=== PATIENT | male | born 1965 | race Caucasian/White ===

== ENCOUNTER 2020-02-10 21:21 | Observation (INO) ==
--- NOTE | 2020-02-10 22:02 | ERNOTE ---
Neuro HPI ER Record Time Seen by Provider: 02/10/20 21:25 Immunizations: IMMUNIZATION HX Immunizations Up to Date Yes History of Influenza Vaccine Yes Hx Pneumococcal Vaccination Yes Allergies/Adverse Reactions: Allergies Allergy/AdvReac Type Severity Reaction Status Date / Time carbamazepine [From Tegretol] Allergy Mild Itching Verified 02/10/20 21:27 Home Medications: HOME MEDICATIONS Albuterol Sulfate [Albuterol Sulfate Hfa] 8.5 gm IH Q6H PRN 02/10/20 [Last Taken Unknown] Aspirin [Aspirin EC] 81 mg PO DAILY 02/10/20 [Last Taken Unknown] Atorvastatin Calcium 80 mg PO DAILY 02/10/20 [Last Taken Unknown] Baclofen 10 - 20 mg PO TID PRN 02/10/20 [Last Taken Unknown] Cimetidine 800 mg PO QPM 02/10/20 [Last Taken Unknown] Gabapentin 800 mg PO TID 02/10/20 [Last Taken Unknown] Loratadine 10 mg PO DAILY PRN 02/10/20 [Last Taken Unknown] - History of Present Illness Narrative: 54-year-old male with history of CVA and right-sided residual neuropathic pain comes in tonight stating that he had an episode approximately 3 hours ago where his words were slurred and he had difficulty drinking from a straw he denies any other symptoms beyond what he typically has pain. He does admit to having alcohol and smoking weed tonight but states he does this every night and has not had this problem. Patient states his symptoms have since completely resolved and he is back to normal. According to his he had no facial asymmetry or extremity weakness during the episode of slurred speech Review of Systems - Review of Systems Constitutional: Present: See HPI EYE: Present: no symptoms reported ENT: Present: See HPI Respiratory: Present: no symptoms reported Cardiology: Present: no symptoms reported Gastrointestinal/Abdominal: Present: no symptoms reported Genitourinary: Present: no symptoms reported Musculoskeletal: Present: other - Chronic right-sided body pain Skin: Present: no symptoms reported Neurological: Present: other - Chronic neuropathic pain All Other Systems: All systems neg except as marked Medical History (Last Reviewed 02/10/20 @ 21:59 by Naomi Noble MD) COPD (chronic obstructive pulmonary disease) CVA (cerebral vascular accident) Seizures Family History: Family History (Last Reviewed 02/10/20 @ 21:59 by Naomi Noble MD) Brother Cancer Father Heart disease Sister Heart disease Uncle Heart disease Mother Heart disease Social History: (Last Reviewed 02/10/20 @ 21:59 by Naomi Noble MD) Tobacco: Smoking Status: Current every day smoker Smoking cigarettes per day: 20 Alcohol: alcohol intake: current Alcohol type: beer alcohol intake frequency: a few times a month Substance Use: substance use type: marijuana Physical Exam - Physical Exam General Appearance: Present: wd/wn, alert, no apparent distress Head Exam: Present: normal inspection, no evidence of injury Eye Exam: Normal inspection: bilateral Ears, Nose, Throat: Present: normal ENT inspection, other - Poor dentition Neck: Present: normal inspection, nontender, supple, full range of motion, limited range of motion Respiratory: Present: no respiratory distress, normal breath sounds, no accessory muscle use Cardiovascular/Chest: Present: normal peripheral pulses Gastrointestinal/Abdominal: Present: nondistended Back Exam: Present: normal range of motion Extremity Exam: Present: normal inspection Neurological Exam: Present: alert, oriented, normal mood/affect, no motor/sensory deficits, 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 Absent: facial droop, motor weakness, disoriented to person, disoriented to time, disoriented to place, disoriented to situation Skin Exam: Present: normal color Initial Stroke Assessment - NIH Stroke Scale Level of Consciousness: Alert LOC Questions (Year and Age): Answers both correctly LOC Commands (open/close eyes/fist): Performs both correctly Lateral Gaze Paresis: None Visual Field Loss: No visual loss Facial Palsy: Normal movement Right Arm Motor (10 sec hold): No drift Left Arm Motor (10 sec hold): No drift Right Leg Motor (5 sec hold): No drift Left Leg Motor (5 sec hold): No drift Limb Ataxia (finger/nose heel/holley): Absent Sensory Loss (pinprick arms/legs/face): No sensory loss Dysarthria (speech clarity): Normal articulation - Stroke Risk Assessment Stroke Risk Assessment Level: 0 No Impairment Stroke Inclusion/Exclusion Cri - Exclusion Questions: Major symptoms rapidly improving: Yes NIHSS Score <4 or >22 performed by physician: Yes - Total NIHSS Score Score:: 0 Progress - Date and Time Seen: Date and Time: 02/10/20 23:01 Patient remains at baseline with a NIH score of 0. His CT was unremarkable and labs are unremarkable with exception of positive marijuana and a mild leukocytosis of 16. This was discussed with admitting physician Dr. benitez who accepted the patient observation - Results and Orders Patient's Lab Results:: I have reviewed the patient's lab results. - Vital Signs Patient's Vital Signs:: I have reviewed the patient's vital signs. Vital Signs: Vital Signs 02/10/20 21:31 Temperature 36.9 C Pulse Rate 86 Respiratory Rate 13 Blood Pressure 117/79 O2 Sat by Pulse Oximetry 85 L - EKG EKG #1 EKG: NSR, no ST T wave changes - Rate 81 - X-Ray X-Ray #1 X-Ray: chest Interpretation: Interp. by me - No acute findings unchanged from prior on 01/2020 - Progress/Reassessment Chief Complaint: CerebroVascular Accident Progress:: Unchanged Plan - Plan Plan: We will place in observation for continued monitoring Departure Clinical Impression: TIA (transient ischemic attack) - Departure Disposition: Home self-care Condition: Good
[2020-02-10 22:27] LABS: Hematocrit 44.6 % (42.0-52.0); Hemoglobin 15.1 gm/dL (13.5-18.0); Mean Cell Volume 98.2 fl (78-100); Mean Corpuscular Hemoglobin 33.3 pg (27-31); Mean Corpuscular Hgb Conc 33.9 g/dl (32-36); Mean Platelet Volume 8.8 fl (8-11.3); Neutrophil # 13.4 K/mm3 (1.3-6.0); Neutrophil % 83.1 % (42-75.0); Platelet Count 220 K/mm3 (150-450); Red Blood Count 4.54 M/mm3 (4.7-6.0); Red Cell Distribution Width 12.9 % (11.5-14.0); White Blood Count 16.2 K/mm3 (4.0-10.5)
[2020-02-10 22:46] LABS: ALT 26 U/L (19-67); AST 25 U/L (0-48); Albumin * 4.1 gm/dl (3.4-5.0); Alkaline Phosphatase * 146 U/L (50-170); Anion Gap 9.2 mmol/L (6.8-13.8); Bilirubin, Total 0.6 mg/dL (0.0-1.1); Blood Urea Nitrogen 8 mg/dL (6-23); Ca. Corrected For Albumin 9.1 mg/dL (8.4-10.2); Calcium * 9.5 mg/dL (7.9-10.9); Carbon Dioxide 31.5 mmol/L (24-32.6); Chloride 103 mmol/L (97-106); Glucose * 108 mg/dL (70-110); Potassium 3.7 mmol/L (3.4-4.6); Sodium 140 mmol/L (132-142); Total Protein 7.5 gm/dL (6.2-8.2)
[2020-02-10 22:50] LABS: Troponin I Less than 0.017 ng/mL (0.00-0.10)
[2020-02-10 22:50] LABS: Cocaine Ur Negative (NEGATIVE); Urine Barbiturate Negative (NEGATIVE); Urine Benzodiazepines Negative (NEGATIVE); Urine Opiates Negative (NEGATIVE); Urine PCP Negative (NEGATIVE)
[2020-02-10 22:51] LABS: Urine THC Positive (NEGATIVE)
--- NOTE | 2020-02-11 10:36 | HPDIS ---
Chief Complaint - Chief Complaint Date of Service: 02/11/20 Time of Service: 10:19 Chief Complaint: I had an episode of slurred speech, and worsening of my numbness and tingling on the right side. History of Present Illness: 54-year-old male with past medical history of COPD, old CVA, nicotine dependence, cigarette smoker, alcohol abuser, habitual marijuana user, and former drug user was evaluated in the ER due to an episode of slurred speech and worsening of his residual neuropathy which was a result of his previous stroke. Patient reports back in June of this year he suffered an acute CVA after which he underwent rehab and says his symptoms have been adequately controlled since then. However yesterday afternoon after taking 2 doses of gabapentin close together and drinking beer and smoking his marijuana as usual, the patient attempted to speak to his girlfriend who arrived from work and he was unable to. He reports that his speech was very slurred and had problems finding words which was alarming to him. He also reports worsening of his chronic pain that affects his right shoulder since having the stroke. He reports being in intense pain all day yesterday which forced him to take the gabapentin at inappropriate times. He reports he was ordered to take the medication in the morning and in the evening before bed but he took both doses less than 5 hours apart and consumed alcohol and marijuana like he was stated above. Patient became alarmed when his symptoms do not resolve and decided to come to the ER where head CT was conducted as well as a full lab work-up which were all negative for any acute findings. The patient did however have an elevated WBC but upon questioning he reports having bronchitis over the past month which has not been treated. Given his long history of COPD the patient is very susceptible to bronchitis and has had a productive cough a month. This could possibly be the cause of his elevated white count, he does however deny any recent fever or chills or worsening shortness of breath. Medical History (Last Reviewed 02/10/20 @ 21:59 by Naomi Noble MD) COPD (chronic obstructive pulmonary disease) CVA (cerebral vascular accident) Seizures Family History: Family History (Last Reviewed 02/10/20 @ 21:59 by Naomi Noble MD) Brother Cancer Father Heart disease Sister Heart disease Uncle Heart disease Mother Heart disease Social History: (Last Reviewed 02/10/20 @ 21:59 by Naomi Noble MD) Tobacco: Smoking Status: Current every day smoker Smoking cigarettes per day: 20 Alcohol: alcohol intake: current Alcohol type: beer alcohol intake frequency: a few times a month Substance Use: substance use type: marijuana Peds Patient Hx - Developmental: No Pertinent Hx Peds Patient Hx - Medical: No Pertinent Hx Peds Patient Hx - Cardiac/Respiratory: No Pertinent Hx Peds Patient Hx - Surgical: No Surgical History Patient History - Cancer: No Hx of Cancer Review Of Systems (GEN) - Review of Systems Generalized/Overall Review: Present: No Symptoms Reported EENTM: Present: No Symptoms Reported Respiratory: Present: Cough Cardiac: Present: No Symptoms Reported Abdominal: Present: No Symptoms Reported Genitourinary: Present: No Symptoms Reported Musculoskeletal: Present: No Symptoms Reported, Joint Pain Neurological: Present: Numbness, Pre-existing Deficit, Other - Brief episode of slurred speech and difficulty finding words that occurred yesterday. Skin: Present: No Symptoms Reported Endocrine: Present: No Symptoms Reported Immunizations: IMMUNIZATION HX Immunizations Up to Date Yes History of Influenza Vaccine Yes Hx Pneumococcal Vaccination Yes Allergies/Adverse Reactions: Allergies Allergy/AdvReac Type Severity Reaction Status Date / Time carbamazepine [From Tegretol] Allergy Mild Itching Verified 02/10/20 21:27 Home Medications: HOME MEDICATIONS Albuterol Sulfate [Albuterol Sulfate Hfa] 8.5 gm IH Q6H PRN 02/10/20 [Last Taken Unknown] Aspirin [Aspirin EC] 81 mg PO DAILY 02/10/20 [Last Taken Unknown] Atorvastatin Calcium 80 mg PO DAILY 02/10/20 [Last Taken Unknown] Baclofen 10 - 20 mg PO TID PRN 02/10/20 [Last Taken Unknown] Cimetidine 800 mg PO QPM 02/10/20 [Last Taken Unknown] Gabapentin 800 mg PO TID 02/10/20 [Last Taken Unknown] Loratadine 10 mg PO DAILY PRN 02/10/20 [Last Taken Unknown] Levofloxacin [Levaquin] 500 mg PO DAILY 5 Days #5 tab 02/11/20 [Last Taken Unknown] Exam - Exam Vital Signs: Vital Signs - Last Taken Temp 36.4 C 02/11/20 08:45 Pulse 74 02/11/20 08:45 Resp 16 02/11/20 08:45 BP 106/61 02/11/20 08:45 Pulse Ox 98 02/11/20 08:45 Constitutional: Present: Alert, Oriented x3, Cooperative, Well developed, No distress Eye Exam: bilateral eye: normal inspection, PERRL, EOMI Neck: Present: non-tender, full range of motion, supple, normal inspection, trachea midline Back Exam: Present: normal inspection, no CVA tenderness, no vertebral tenderness Breasts: Present: Exam deferred, Nontender Respiratory: Present: chest non-tender, lungs clear, normal breath sounds, no respiratory distress, other - Patient is actively coughing Cardiovascular/Chest: Present: normal peripheral pulses, regular rate, rhythm, no chest tenderness, no edema, no gallop, no JVD, no murmur, no rub Peripheral Pulses: dorsalis-pedis (R): 2+, dorsalis-pedis (L): 2+ Abdomen: Present: Normal bowel sounds, soft, nontender, nondistended, no rebound tenderness, no hepatospenomegaly, no masses /Rectal: Present: Exam deferred Extremity: Present: normal range of motion, non-tender, normal inspection, no pedal edema, no calf tenderness, normal capillary refill, pelvis stable Skin Exam: Present: normal color, warm/dry, no cyanosis Lymphatic: Present: no adenopathy Neurologic: Present: measurement superintendent II-XII nml as tested, no motor/sensory deficits, alert, normal mood/affect, oriented x 3 Appearance: Present: appropriate appearance, appropriate insight, neat, no memory impairment, disheveled Eye contact: Present: cooperative, good eye contact, normal speech Thoughts: Present: normal thought pattern, no apparent hallucination Diagnostic Studies: Abnormal Lab Results 02/10/20 02/10/20 02/10/20 Range/Units 22:25 22:25 22:26 WBC 16.2 H (4.0-10.5) K/mm3 RBC 4.54 L (4.7-6.0) M/mm3 MCH 33.3 H (27-31) pg Immature Gran # (Auto) 0.06 H (0.000-0.0310) K/mm3 Neutrophils % 83.1 H (42-75.0) % Lymphocytes % 9.0 L (20-51) % Neutrophils # 13.4 H (1.3-6.0) K/mm3 Lymphocytes # 1.46 L (1.5-3.5) k/mm3 BUN/Creatinine Ratio 7.0 L (9.0-21.6) Urine Marijuana (THC) Positive H (NEGATIVE) Laboratory Results WBC 16.2 K/mm3 (4.0-10.5) H 02/10/20 22:25 RBC 4.54 M/mm3 (4.7-6.0) L 02/10/20 22:25 Hgb 15.1 gm/dL (13.5-18.0) 02/10/20 22:25 Hct 44.6 % (42.0-52.0) 02/10/20 22:25 MCV 98.2 fl (78-100) 02/10/20 22: MCH 33.3 pg (27-31) H 02/10/20 22: MCHC 33.9 g/dl (32-36) 02/10/20 22:25 RDW 12.9 % (11.5-14.0) 02/10/20 22:25 Plt Count 220 K/mm3 (150-450) 02/10/20 22:25 MPV 8.8 fl (8-11.3) 02/10/20 22:25 Immature Gran % (Auto) 0.40 % (0.001-0.429) 02/10/20: Immature Gran # (Auto) 0.06 K/mm3 (0.000-0.0310) H 02/10/20 22:25 Neutrophils % 83.1 % (42-75.0) H 02/10/20 22:25 Lymphocytes % 9.0 % (20-51) L 02/10/20 22:25 Monocytes % 5.9 % (0.0-9) 02/10/20 22:25 Eosinophils % 1.2 % (0.0-3.0) 02/10/20: Basophils % 0.4 % (0.0-1.0) 02/10/20: Nucleated RBC % 0.0 k/mm3 (0-1) 02/10/20 22:25 Neutrophils # 13.4 K/mm3 (1.3-6.0) H 02/10/20 22:25 Lymphocytes # 1.46 k/mm3 (1.5-3.5) L 02/10/20 22:25 Monocytes # 1.0 k/mm3 (0.0-1.0) 02/10/20 22:25 Eosinophils # 0.2 k/mm3 (0.0-0.7) 02/10/20 22:25 Absolute Basophils 0.1 k/mm3 (0.0-0.1) 02/10/20 22:25 Sodium 140 mmol/L (132-142) 02/10/20 22:25 Plasma Sodium 140 mmol/L (130-142) 02/10/20 22:25 Potassium 3.7 mmol/L (3.4-4.6) 02/10/20 22:25 Chloride 103 mmol/L (97-106) 02/10/20 22:25 Carbon Dioxide 31.5 mmol/L (24-32.6) 02/10/20 22:25 Anion Gap 9.2 mmol/L (6.8-13.8) 02/10/20 22:25 BUN 8 mg/dL (6-23) 02/10/20 22:25 Creatinine 1.14 mg/dL (0.4-1.4) 02/10/20 22:25 Est GFR (Non-Af Amer) 71 mL/min (60-130) 02/10/20 22:25 BUN/Creatinine Ratio 7.0 (9.0-21.6) L 02/10/20 22:25 Random Glucose 108 mg/dL (70-110) 02/10/20 22:25 Calcium 9.5 mg/dL (7.9-10.9) 02/10/20 22:25 Calcium Adj for Albumin 9.1 mg/dL (8.4-10.2) 02/10/20 22:25 Total Bilirubin 0.6 mg/dL (0.0-1.1) 02/10/20 22:25 AST 25 U/L (0-48) 02/10/20 22:25 ALT 26 U/L (19-67) 02/10/20 22:25 Alkaline Phosphatase 146 U/L (50-170) 02/10/20 22:25 Troponin I Less than 0.017 ng/mL (0.00-0.10) 02/10/20 22:25 Total Protein 7.5 gm/dL (6.2-8.2) 02/10/20 22:25 Albumin 4.1 gm/dl (3.4-5.0) 02/10/20 22:25 Urine Opiates Screen Negative (NEGATIVE) 02/10/20 22: Barbiturate Screen Negative (NEGATIVE) 02/10/20 22:26 Ur Phencyclidine Scrn Negative (NEGATIVE) 02/10/20 22:26 Urine Amphetamine Negative (NEGATIVE) 02/10/20 22: U Benzodiazepines Scrn Negative (NEGATIVE) 02/10/20 22: Urine Cocaine Screen Negative (NEGATIVE) 02/10/20 22:26 Urine Marijuana (THC) Positive (NEGATIVE) H 02/10/20 22: Ethyl Alcohol Less than 3.0 mg/dL (0.0-10.0) 02/10/20 22:25 SARS-CoV-2 (PCR) Not detected (NotDetected) 02/10/20 23:25 Assessment/Plan - Narrative Narrative: Patient was admitted to our [facility] floor for observation overnight for possible TIA versus CVA. He was placed on a vehicle monitor technician and was watched closely. Aside from a brief stent of neuropathic pain and numbness that occurred in his right lower extremity this morning the patient says he feels much better and his symptoms have almost completely resolved. It was explained to patient that it is likely that his symptoms were caused by inappropriate use of his gabapentin combined with alcohol and marijuana. He was counseled on the importance of taking medications correctly as prescribed and to refrain from abusing alcohol and smoking marijuana. A thorough neurological examination was conducted at bedside and aside from the patient reporting that he still has numbness and tingling on the right side of his body from the previous stroke, the exam was normal. - Assessment/Plan (1) Neurologic abnormality Problem: Chronic (2) TIA (transient ischemic attack) Problem: Resolved (3) Marijuana user Problem: Chronic (4) H/O drug abuse Problem: Chronic (5) Smoker unmotivated to quit Problem: Chronic (6) Cerebrovascular accident, old Problem: Chronic (7) Alcohol abuse Problem: Chronic (8) COPD (chronic obstructive pulmonary disease) Problem: Chronic (9) Acute bronchitis Problem: Acute (1) Neurologic abnormality Problem: Resolved (2) TIA (transient ischemic attack) Problem: Resolved (3) Marijuana user Problem: Chronic (4) H/O drug abuse Problem: Chronic (5) Smoker unmotivated to quit Problem: Chronic (6) Cerebrovascular accident, old Problem: Chronic (7) Alcohol abuse Problem: Chronic (8) COPD (chronic obstructive pulmonary disease) Problem: Chronic (9) Acute bronchitis Problem: Acute Date of Discharge:: 02/11/20 Hospital Course: Patient symptoms have completely resolved and vitals remain stable. It appears the episode was due to misuse of his medications with combination of drugs and alcohol. He was counseled on the importance of refraining from smoking marijuana and abusing alcohol and to take his medication as prescribed. The patient was also instructed to follow-up with his PCP. He will be provided with a prescription for oral antibiotics to clear for his bronchitis. Procedures Performed: none Results and Findings: Lab Pending Results 02/10/20 22:25: WBC 16.2 H, RBC 4.54 L, Hgb 15.1, Hct 44.6, MCV 98.2, MCH 33.3 H, MCHC 33.9, RDW 12.9, Plt Count 220, MPV 8.8, Immature Gran % (Auto) 0.40, Immature Gran # (Auto) 0.06 H, Neutrophils % 83.1 H, Lymphocytes % 9.0 L, Monocytes % 5.9, Eosinophils % 1.2, Basophils % 0.4, Nucleated RBC % 0.0, Neutrophils # 13.4 H, Lymphocytes # 1.46 L, Monocytes # 1.0, Eosinophils # 0.2, Absolute Basophils 0.1 02/10/20 22:25: Sodium 140, Plasma Sodium 140, Potassium 3.7, Chloride 103, Carb on Dioxide 31.5, Anion Gap 9.2, BUN 8, Creatinine 1.14, Est GFR (Non-Af Amer) 71, BUN/Creatinine Ratio 7.0 L, Random Glucose 108, Calcium 9.5, Calcium Adj for Albumin 9.1, Total Bilirubin 0.6, AST 25, ALT 26, Alkaline Phosphatase 146, Troponin I Less than 0.017, Total Protein 7.5, Albumin 4.1, Ethyl Alcohol Less than 3.0 02/10/20 22:26: Urine Opiates Screen Negative, Barbiturate Screen Negative, Ur Phencyclidine Scrn Negative, Urine Amphetamine Negative, U Benzodiazepines Scrn Negative, Urine Cocaine Screen Negative, Urine Marijuana (THC) Positive H 12/11/20 23:25: SARS-CoV-2 (PCR) Not detected Discharge Location: Home Disposition: Home self-care Condition: Good Discharge Activity: Activity as tolerated Discharge Diet: General/regular food Prescriptions (Any new or edited meds): Levofloxacin [Levaquin] 500 mg PO DAILY 5 Days #5 tab Transmission Status: Pending to [facility] #[id number] Complete Home Medications List: Complete Home Medication List: Albuterol Sulfate [Albuterol Sulfate Hfa] 8.5 gm IH Q6H PRN 02/10/20 Aspirin [Aspirin EC] 81 mg PO DAILY 02/10/20 Atorvastatin Calcium 80 mg PO DAILY 02/10/20 Baclofen 10 - 20 mg PO TID PRN 02/10/20 Cimetidine 800 mg PO QPM 02/10/20 Gabapentin 800 mg PO TID 02/10/20 Loratadine 10 mg PO DAILY PRN 02/10/20 Levofloxacin [Levaquin] 500 mg PO DAILY 5 Days #5 tab 02/11/20
[2020-02-11 12:54] VITALS: BP 105/72
== END 2020-02-11 12:40 | disposition home or self-care (01) ==
LOC: ER 21:21 → MS 21:21
PROVIDERS: ADMIT Family Medicine; ATTEND Family Medicine